=== PATIENT | female | born 1965 | race African-American/Black ===

== ENCOUNTER 2016-12-16 18:38 | Emergency (ER) | payer MEDICARE ==
[~2016-12-16] VITALS: Ht 160 cm; Wt 114.8 kg
[~2016-12-16 18:38] MED LIST: CHLO25TA PO; LOSA25TA4 PO
[2016-12-16] MEDS ORDERED: ONDANSETRON PF 4 MG/2 ML VIAL. IV PRN (19:30)
[2016-12-16 19:40] LABS: BASO # 0.1 x10^3/uL (0.0-0.2); BASO % 1 % (0-3); EOS % 5 % (0-3); HEMOGLOBIN 11.3 g/dL (12.0-15.5); LYMPH # 1.1 x10^3/uL (1.0-4.8); LYMPH % 17 % (24-48); MEAN CORPUSCULAR HEMOGLOBIN 24 pg (25-35); MEAN CORPUSCULAR HGB CONC 31 g/dL (31-37); MEAN CORPUSCULAR VOLUME 75 fL (79-100); MONO % 12 % (0-9); NEUT % 66 % (31-73); PLATELET COUNT 290 x10^3/uL (140-400); RED BLOOD COUNT 4.81 x10^6/uL (3.50-5.40); RED CELL DISTRIBUTION WIDTH 19.2 % (11.5-14.5); WHITE BLOOD COUNT 6.4 x10^3/uL (4.0-11.0)
[2016-12-16 20:03] LABS: CALCIUM 9.3 mg/dL (8.5-10.1); GFR 71.3; POTASSIUM 3.9 mmol/L (3.5-5.1)
[2016-12-16 20:06] LABS: ALBUMIN 3.5 g/dL (3.4-5.0); DIRECT BILIRUBIN 0.1 mg/dL (0.0-0.2); TOTAL BILIRUBIN 0.3 mg/dL (0.2-1.0); TOTAL PROTEIN 7.8 g/dL (6.4-8.2)
[2016-12-16 20:19] LABS: OBC FLU VALID
[2016-12-16] MEDS ORDERED: ACET325T9 PO (20:50)
[2016-12-16] MEDS ORDERED: OSEL75CA PO (20:50)
--- NOTE | 2016-12-16 20:51 | PHYS DOC ---
Past Medical History Past Medical History: Asthma, Diabetes-Type II, GERD, Hypertension, Seizure Additional Past Medical Histor: "seizures" Past Surgical History: Tubal ligation Additional Past Surgical Histo: Left knee Alcohol Use: None Drug Use: None Adult General Chief Complaint Chief Complaint: CHEST WALL PAIN HPI HPI 51-year-old female presenting to the emergency department with cough and chest pain. His been present for approximately 3 days. She also complains of cough sore throat headache and back pain. She describes muscle aches. Her pain is sharp moderate intermittent and without alleviating factors. Review of systems is negative for fevers chills nausea or vomiting. All other review of systems is negative unless otherwise noted in history of present illness. Review of Systems Review of Systems SEE ABOVE. Current Medications Current Medications Current Medications Medications (Trade) Dose Ordered Sig/Federico Start Time Stop Time Status Last Admin Dose Admin Ondansetron HCl (Zofran) 4 mg PRN Q30MIN PRN 12/16/16 19:30 Allergies Allergies Allergies Coded Allergies Type Severity Reaction Last Updated Verified hydrocodone Allergy Unknown n/v 10/04/14 No morphine Allergy Unknown n/v 10/04/14 No Physical Exam Physical Exam Constitutional: Well developed, well nourished, no acute distress, non-toxic appearance. HENT: Normocephalic, atraumatic, bilateral external ears normal, oropharynx moist, no oral exudates, nose normal. [] Eyes: PERRLA, EOMI, conjunctiva normal, no discharge. Neck: Normal range of motion, no tenderness, supple, no stridor. [] Cardiovascular:Heart rate regular rhythm, no murmur Lungs & Thorax: Bilateral breath sounds clear to auscultation [] Abdomen: Soft nontender abdomen without rebound tenderness or guarding present. Negative McBurneys point. Negative Larson sign. No ecchymosis present. Skin: Warm, dry, no erythema, no rash. [] Back: No tenderness, no CVA tenderness. Extremities: No tenderness, no cyanosis, no clubbing, ROM intact, no edema. [] Neurologic: Alert and oriented X 3, normal motor function, normal sensory function, no focal deficits noted. Psychologic: Affect normal, judgement normal, mood normal. [] Current Patient Data Vital Signs Vital Signs Date Time Temp Pulse Resp B/P Pulse Ox O2 Delivery O2 Flow Rate FiO2 12/16/16 19:42 98.9 82 16 154/85 100 Room Air 98.9 Lab Values Laboratory Tests Test 12/16/16 19:25 12/16/16 19:33 Influenza Type A Antigen Positive (NEGATIVE) Influenza Type B Antigen Negative (NEGATIVE) White Blood Count 6.4x10^3/uL (4.0-11.0) Red Blood Count 4.81x10^6/uL (3.50-5.40) Hemoglobin 11.3g/dL (12.0-15.5) L Hematocrit 36.0% (36.0-47.0) Mean Corpuscular Volume 75fL (79-100) L Mean Corpuscular Hemoglobin 24pg (25-35) L Mean Corpuscular Hemoglobin Concent 31g/dL (31-37) Red Cell Distribution Width 19.2% (11.5-14.5) H Platelet Count 290x10^3/uL (140-400) Neutrophils (%) (Auto) 66% (31-73) Lymphocytes (%) (Auto) 17% (24-48) L Monocytes (%) (Auto) 12% (0-9) H Eosinophils (%) (Auto) 5% (0-3) H Basophils (%) (Auto) 1% (0-3) Neutrophils # (Auto) 4.2x10^3uL (1.8-7.7) Lymphocytes # (Auto) 1.1x10^3/uL (1.0-4.8) Monocytes # (Auto) 0.7x10^3/uL (0.0-1.1) Eosinophils # (Auto) 0.3x10^3/uL (0.0-0.7) Basophils # (Auto) 0.1x10^3/uL (0.0-0.2) Sodium Level 138mmol/L (136-145) Potassium Level 3.9mmol/L (3.5-5.1) Chloride Level 102mmol/L (98-107) Carbon Dioxide Level 29mmol/L (21-32) Anion Gap 7 (6-14) Blood Urea Nitrogen 8mg/dL (7-20) Creatinine 1.0mg/dL (0.6-1.0) Estimated GFR (Cockcroft-Gault) 71.3 Glucose Level 111mg/dL (70-99) H Calcium Level 9.3mg/dL (8.5-10.1) Total Bilirubin 0.3mg/dL (0.2-1.0) Direct Bilirubin 0.1mg/dL (0.0-0.2) Aspartate Amino Transferase (AST) 16U/L (15-37) Alanine Aminotransferase (ALT) 18U/L (14-59) Alkaline Phosphatase 71U/L (46-116) Troponin I Quantitative < 0.017ng/mL (0.000-0.055) PG-Ked-Q-Type Natriuretic Peptide 59pg/mL (0-124) Total Protein 7.8g/dL (6.4-8.2) Albumin 3.5g/dL (3.4-5.0) Lipase 152U/L (73-393) Laboratory Tests 12/16/16 19:33 Laboratory Tests 12/16/16 19:33 EKG EKG [] Radiology/Procedures Radiology/Procedures Chest x-ray without previous available at this time for comparison. Shows central diffuse radio opacification along the hilar region without focal infiltrates or obvious pneumothorax present. [] Course & Med Decision Making Course & Med Decision Making Pertinent Labs and Imaging studies reviewed. (See chart for details) [] 51-year-old female presenting to the emergency department today with cough nausea vomiting. Influenza positive. Vital signs showed afebrile with a normal heart rate. Otherwise unremarkable physical exam. Blood work obtained which showed mild baseline anemia. Chemistry panel unremarkable. Patient was prescribed Tamiflu ibuprofen to follow-up with primary care physician over the next 2-3 days. Dragon Disclaimer Dragon Disclaimer This electronic medical record was generated, in whole or in part, using a voice recognition dictation system. Departure Departure Impression: Primary Impression: Influenza Additional Impressions: Cough Rhinorrhea Muscle ache Disposition: 01 HOME, SELF-CARE Condition: STABLE Referrals: SHIRA ANNE (PCP) Patient Instructions: Influenza, Adult Additional Instructions: Thank you for allowing us to participate in your care today. Followup with your primary care physician in 3 days if your symptoms do not improve. If you do not have a primary care provider you can ask for a list of our primary care providers. Return to the emergency department you have any new or concerning findings. This should be evaluated by the primary care physician and any necessary consulting services for continued management within a few days after discharge. Return to emergency room if you have any new or concerning symptoms including but not limited to fever, chills, nausea, vomiting, intractable pain, any new rashes, chest pain, shortness of air, uncontrolled bleeding, difficulty breathing, and/or vision loss. You may have been prescribed medication that can change in your level of thinking and ability to operate machinery. These medications include hydrocodone and Ativan. Also, Benadryl has been known to do this as well. Be sure to check with your pharmacist and ask if the medications you've prescribed can affect your level of consciousness. I recommend not operating heavy machinery or driving while on medication such as these. Scripts Oseltamivir Phosphate (Tamiflu)75 Mg Capsule1 Cap PO BID #10 CAP Prov:MAZIN STEWART MD 12/16/16 Acetaminophen (Tylenol)325 Mg [id number] Mg PO PRN Q8HRS PRN PAIN #20 Prov:MAZIN STEWART MD 12/16/16 Problem Qualifiers MAZIN STEWART MD Dec 16, 2016 20:50
[2016-12-16 21:02] VITALS: BP 143/81
--- NOTE | 2016-12-17 06:40 | EKG ---
[facility] [address] [place] [address] Test Date: 2016-12-16 Test Time: 19:20:13 Pat Name: TWIN DOUGLAS Department: Room: Gender: F [employer] Production Manager: : [id number] Requested By: MAZIN STEWART Order Number: [id number] Reading MD: Measurements Intervals [place] Rate: 81 P: 56 MD: 142 QRS: 18 QRSD: 92 T: 1 QT: 344 QTc: 400 Interpretive Statements SINUS RHYTHM LEFT ATRIAL ABNORMALITY ABNORMAL ECG RI6.01 No previous ECG available for comparison
--- NOTE | 2016-12-17 07:59 | RAD ---
Indication chest pain. A single view of the chest was obtained and is compared to a study 10/04/2014. Heart size is at the upper limits of normal but unchanged. There is no congestive heart failure. A focal process is not seen in the chest. Calcified right peritracheal lymph nodes are again noted. IMPRESSION: No acute or focal process seen in the chest
== END 2016-12-16 21:19 | disposition home or self-care (01) ==
LOC: ER 18:38
DX: J11.1 Influenza due to unidentified influenza virus with other respiratory manifestations (principal); M79.1 Myalgia; R51 Headache; E11.9 Type 2 diabetes mellitus without complications; I10 Essential (primary) hypertension; J45.909 Unspecified asthma, uncomplicated; K21.9 Gastro-esophageal reflux disease without esophagitis; Z98.51 Tubal ligation status; Z88.5 Allergy status to narcotic agent
CPT/HCPCS: 36415; 71010; 80048; 80076; 83690; 83880; 84484; 85027; 87804; 93005; 99285-25